=== PATIENT | female | born 1990 | race African-American/Black ===

== ENCOUNTER 2018-11-21 04:03 | Emergency (ER) | payer SELFPAY ==
[~2018-11-21] VITALS: Ht 167.6 cm; Wt 67.7 kg
--- NOTE | 2018-11-21 04:30 | NUR ---
FIRST CONTACT WITH PT. PT C/O ULQ/URQ ABD PAIN AND BLOOD IN URINEx1 HOUR. DENIES PAINFUL URINATION. PT'S AOX4. RESPS EVEN AND UNLABORED. BP/SPO2 MONITORS IN PLACE. CALL LIGHT WITHIN REACH.
--- NOTE | 2018-11-21 04:46 | NUR ---
PT AMB TO BR AND BACK TO ROOM WITH STEADY GAIT. UA SENT.
[2018-11-21 05:13] LABS: MICROSCOPIC INDICATED
[2018-11-21 05:14] LABS: CULTURE INDICATED? YES; HCG UR SG 1.006 (1.003-1.030)
[2018-11-21 06:02] LABS: ALBUMIN 4.1 g/dL (3.4-5.0); ANION GAP 8 mmol/L (5-15); CHLORIDE 106 mmol/L (98-107); CREATININE 0.76 mg/dL (0.55-1.02)
--- NOTE | 2018-11-21 06:03 | NUR ---
PT RESTING IN [facility]. PT'S AOX4. RESPS EVEN AND UNLABORED. BP/SPO2 MONITORS IN PLACE. CALL LIGHT WITHIN REACH.
[2018-11-21 06:18] LABS: MEAN CORPUSCULAR HGB CONC 31.9 g/dL (32.4-35.8); PLATELET COUNT 337 x10^3/uL (130-400); RED BLOOD COUNT 5.36 x10^6/uL (3.82-5.3); RED CELL DISTRIBUTION WIDTH 19.4 % (9.6-15.2)
[2018-11-21 06:19] LABS: MD YES
[2018-11-21 06:21] LABS: ANISOCYTOSIS 1+; BASOS#(MANUAL) 0.06 x10^3/uL (0-0.1); BASOS% (MANUAL) 1 % (0-1); LYMPH#(MANUAL) 2.62 x10^3/uL (1-3.4); LYMPHS% (MANUAL) 41 % (22-44); MICROCYTOSIS 1+; MONOS#(MANUAL) 0.51 x10^3/uL (0.3-2.7); MONOS% (MANUAL) 8 % (2-9); SEGS% (MANUAL) 50 % (42-75)
[2018-11-21 06:22] LABS: <PLATELET ESTIMATE> ADEQUATE; <PLT MORPHOLOGY> NORMAL PLT MORPH; OVALOCYTES 1+
--- NOTE | 2018-11-21 06:56 | NUR ---
REPORT RECEIVED, CARE ASSUMED.
--- NOTE | 2018-11-21 06:56 | NUR ---
report given to jamal gallegos.
--- NOTE | 2018-11-21 07:19 | NUR ---
DR ARMAS AT BEDSIDE TO RE-EVAL PT
[2018-11-21 07:36] VITALS: BP 96/57
--- NOTE | 2018-11-21 07:36 | NUR ---
PT SITTING UP ON GURNEY, NO ACUTE DISTRESS NOTED. NO IV TO DC, REVIEWED DC INSTRUCTIONS WITH PT, UNDERSTANDING VERBALIZED. PT LEFT AMB.
== END 2018-11-21 07:38 | disposition home or self-care (01) ==
LOC: ED 06:33
DX: O23.11 Infections of bladder in pregnancy, first trimester (principal); Z32.01 Encounter for pregnancy test, result positive; Z3A.01 Less than 8 weeks gestation of pregnancy
CPT/HCPCS: 36415; 76801; 80048; 81001; 81025; 82040; 84702; 85025; 86901; 87077; 87086; 87186; 99284

== ENCOUNTER 2018-12-05 11:03 | Emergency (ER) | payer SELFPAY ==
[~2018-12-05] VITALS: Ht 165.1 cm; Wt 68.0 kg
--- NOTE | 2018-12-05 11:30 | NUR ---
PER "SHE IS HAVING CRAMPING IN HER BELLY. SHE IS . IT STARTED YESTERDAY AND SHE IS BLEEDING." HAS SATURATED TWO PADS IN 12 HOURS PT 5 OR 6 WEEKS W/ 1ST CHILD REPORTING DIFFUSE ABD PAIN AT 7/10 TO US AT 1135
[2018-12-05] MEDS ORDERED: HYDROcodone/APAP 5/325 TABLET ONE (12:13)
--- NOTE | 2018-12-05 12:16 | NUR ---
BARCODE MEDICATION SCANNER BROKEN. 5 RIGHTS VERIFIED. MEDICATED W/ 5MG NORCO FOR DIFFUSE ABD PAIN AT 01/21. CLARIFIED APPROPRIATENESS OF MED D/T W/ PROVIDER WELL PATIENT PRIOR TO ADMIN
--- NOTE | 2018-12-05 12:24 | NUR ---
UP TO RESTROOM TO VOID
[2018-12-05] MEDS ORDERED: HYDROcodone/APAP 5/325 TABLET PO ONE (12:30)
--- NOTE | 2018-12-05 13:00 | NUR ---
URINE SENT PATIENT REPORTS PAIN IMPROVED TO 2/10 UPDATED ON POC CALL DUARTE IN HAND/ AT BEDSIDE
[2018-12-05 13:18] LABS: MICROSCOPIC INDICATED
[2018-12-05 13:19] LABS: CULTURE INDICATED? YES
--- NOTE | 2018-12-05 14:10 | NUR ---
PROVIDER TO BEDSIDE-EXPLAINED DIAGNOSIS PATIENT TEARFUL-LOGGER DRIVING HORSES COMFORTED/PROVIDED W/ TISSUES. PATIENT REVIEWED PLAN (F/U WITH OB) ALSO REVIEWED AND SXS WARRANTING RETURN TO ER
[2018-12-05 14:29] VITALS: BP 135/63
== END 2018-12-05 14:31 | disposition home or self-care (01) ==
LOC: ED 12:29
DX: O03.4 Incomplete spontaneous abortion without complication (principal)
CPT/HCPCS: 36415; 76801; 81001; 84702; 87086; 87147; 99284